=== PATIENT | female | born 1945 | race Caucasian/White ===

== ENCOUNTER → 2017-04-03 | Outpatient (CLI) | payer OTHER, MEDICARE ==
[~2017-04-03] MED LIST: GADOBUTROL 10 ML VIAL IVP ONE
[2017-04-03 07:46] LABS: CREATININE 0.8 mg/dL (0.6-1.0); GLOMERULAR FILTRATION RATE > 60
== END ==
LOC: FIMAGING 06:49
PROVIDERS: ATTEND Psychiatry & Neurology Neurology
DX: Z12.31 Encounter for screening mammogram for malignant neoplasm of breast (principal); G50.0 Trigeminal neuralgia
CPT/HCPCS: 70553; A9585; G0202

== ENCOUNTER → 2017-04-13 | Outpatient (CLI) | payer OTHER, MEDICARE | LOC: BMCIMAGING 10:13 | PROVIDERS: ATTEND Internal Medicine | DX: R92.2 Inconclusive mammogram (principal) | CPT/HCPCS: G0206 ==

== ENCOUNTER 2017-04-20 08:44 | Emergency (ER) | payer OTHER, MEDICARE ==
--- NOTE | 2017-04-20 09:22 | EDPHY ---
H & P Stated Complaint: Thinks she may be having a reaction to lamictal. Time Seen by Provider: 04/20/17 09:04 HPI/ROS: CHIEF COMPLAINT: Possible drug reaction, anxiety HISTORY OF PRESENT ILLNESS: The patient is a 72 y/o female arriving at the referral of her doctor due to concern she is having an allergic reaction to her Lamictal. She has a history of trigeminal neuralgia and was started on Lamictal April 02, about 2.5 weeks ago, to treat this. She developed diarrhea yesterday and called her neurologist, who instructed her to stop the Lamictal. She continued taking the medication yesterday, but discontinued it this morning and now complains of myalgias and is quite anxious her symptoms are due to her Lamictal. She has not had further episodes of diarrhea today. She complains of bilateral elbow and right shoulder soreness. She has a small, red, and pruritic bump on her right forearm that she thinks is a bug bite, but thought alternatively it may be caused by her medication. No abdominal pain, vomiting, fever. REVIEW OF SYSTEMS: Constitutional: No fever, no chills Eyes: No visual changes ENT: No sore throat Respiratory: No cough, no shortness of breath Cardiac: No chest pain Gastrointestinal: No nausea, no vomiting, no abdominal pain Genitourinary: No hematuria, no dysuria Neurological: No headache, no weakness Psychiatric: feels anxious - Medical/Surgical History PMH: PMH includes: Trigeminal neuralgia Hx Asthma: No Hx Chronic Respiratory Disease: No Hx Diabetes: No Hx Cardiac Disease: No Hx Renal Disease: No Hx Cirrhosis: No Hx Alcoholism: No Hx HIV/AIDS: No Hx Splenectomy or Spleen Trauma: No Other PMH: Depression. Colitis. Esophagus spasms. - Social History Smoking Status: Never smoked Additional Social History: at bedside. Scheduled to fly to [place] today. Neurologist: Dr. Mata - Physical Exam Exam: General Appearance: Alert, no distress Eyes: Pupils equal and round, no conjunctival pallor or injection ENT, Mouth: Mucous membranes moist, no oral lesions Neck: Normal inspection Respiratory: Lungs are clear to auscultation Cardiovascular: Regular rate and rhythm Gastrointestinal: Abdomen is soft and non-tender Neurological: A&O, nonfocal, normal gait Skin: 1cm area of raised erythema on her right forearm Extremities: Nontender, no pedal edema Psychiatric: anxious Constitutional: Initial Vital Signs Temperature (C) 36.6 C 04/20/17 08:45 Heart Rate 79 04/20/17 08:45 Respiratory Rate 20 04/20/17 08:45 Blood Pressure 160/104 H 04/20/17 08:45 O2 Sat (%) 96 04/20/17 08:45 O2 Delivery Mode Room Air Allergies/Adverse Reactions: iodine Allergy (Verified 04/20/17 08:50) Penicillins Allergy (Verified 04/20/17 08:50) whey Allergy (Uncoded 04/20/17 08:50) Home Medications: Medication Instructions Recorded Lamictal 04/20/17 Medical Decision Making ED Course/Re-evaluation: This is a 72 y/o female with a history of trigeminal neuralgia complaining of myalgias, a single raised erythematous area on her forearm, and now-resolved diarrhea that she is concerned is a reaction to her Lamictal. Her neurologist instructed her to stop the medication, but the patient took another dose yesterday. She has not taken a dose today. My suspicion is low for a Lamictal reaction as the cause of her symptoms, though this is possible. No evidence of Hannah-Larry's syndrome or infection. I've recommended she follow Dr. Mata's instructions and follow up with her as needed. Return precautions given. Repeat BP 140/92. Departure - Departure Disposition: Home, Routine, Self-Care Clinical Impression: Myalgia Diarrhea Qualifiers: Diarrhea type: unspecified type Qualified Code(s): R19.7 - Diarrhea, unspecified Condition: Good Instructions: Acute Diarrhea (ED), Musculoskeletal Pain (ED) Additional Instructions: Discontinue Lamictal as directed by your neurologist. Follow up with Dr. Mata as needed. Use Tylenol or ibuprofen as directed on the packaging as needed for pain over the next few days. Have your blood pressure rechecked. Referrals: Giana Mata, [Primary Care Provider] - As per Instructions Report Scribed for: Betsy Duckworth Report Scribed by: Sigrid Lane Date of Report: 04/20/17 Time of Report: 09:07 Physician Review and Approval Statement: 04/20/17 09:07 Portions of this note were transcribed by a medical liaison. I personally performed a history, physical exam, medical decision making, and confirmed accuracy of information the transcribed note.
[2017-04-20 10:01] VITALS: BP 140/92; PULSE 73; RESP 18; TEMP 98.1; O2SAT 93
== END 2017-04-20 09:50 | disposition home or self-care (01) ==
DX: M79.1 Myalgia (principal); R19.7 Diarrhea, unspecified

== ENCOUNTER 2017-07-06 11:28 | Day surgery (SDC) | payer OTHER, MEDICARE ==
[2017-07-06] MEDS ORDERED: ASPIRIN EC 325 MG TAB PO ONE (11:35)
[2017-07-06] MEDS ORDERED: NS 1,000 ML IV ONE (11:35)
[2017-07-06] MEDS ORDERED: FAMOTIDINE 20 MG/NACL 50 ML IV ONE (11:35)
[2017-07-06] MEDS ORDERED: DIAZEPAM 5 MG TAB PO ONE (11:35)
[2017-07-06] MEDS ORDERED: methylPREDNISolone SOD SUCC 125 MG/2 ML VIAL IVP ONE (11:35)
--- NOTE | 2017-07-06 11:43 | CPEKG ---
Heart Rate: 72 RR Interval: 833 P-R Interval: 176 QRSD Interval: 90 QT Interval: 412 QTC Interval: 451 P [place]: 38 QRS [place]: -3 T Wave [place]: 34 EKG Severity - ABNORMAL ECG - EKG Impression: SINUS RHYTHM EKG Impression: ANTERIOR AND INFERIOR T ABNL EKG Impression: PROBABLE INFERIOR INFARCT, AGE INDETERMINATE Electronically Signed By: Hali Gutiérrez 06-Jul-2017 21:30:14
[2017-07-06 12:10] LABS: % IMMATURE GRANULYOCYTES 0.5 % (0.0-1.1); ABSOLUTE IMMATURE GRANULOCYTES 0.03 10^3/uL (0.00-0.10); ADD DIFF? NO; ADD MORPH? NO; ADD SCAN? NO; ATYPICAL LYMPHOCYTE FLAG 10 (0-99); FRAGMENT RBC FLAG 0 (0-99); HEMATOCRIT 40.8 % (38.0-47.0); HEMOGLOBIN 14.1 g/dL (12.6-16.3); LEFT SHIFT FLG 0 (0-99); LIPEMIA HEMOLYSIS FLAG 90 (0-99); MEAN CELL HEMOGLOBIN 32.3 pg (27.9-34.1); MEAN CELL HEMOGLOBIN CONCENTR. 34.6 g/dL (32.4-36.7); MEAN CELL VOLUME 93.6 fL (81.5-99.8); PLATELET CLUMPS FLAG 10 (0-99); PLATELET COUNT 237 10^3/uL (150-400); RED BLOOD CELL COUNT 4.36 10^6/uL (4.18-5.33); RED CELL DISTRIBUTION WIDTH 12.5 % (11.5-15.2)
[2017-07-06 12:19] LABS: INR 1.02 (0.83-1.16); PROTIME(PATIENT) 13.3 SEC (12.0-15.0)
--- NOTE | 2017-07-06 12:28 | PDPROPOC ---
Sedation Plan of Care Sedation Plan of Care: vital signs stable, mental status noted, patient educated of risks, benefits, alternatives, patient can tolerate sedation ASA Classification: ASA 1 Planned drugs: fentanyl, midazolam Mallampati Score: Class 1 Mallampati Reference Image: Patient passed 3-3-2 rule?: Yes (332)
--- NOTE | 2017-07-06 12:28 | PDHPUP ---
History & Physical Update H&P update statement: This history and physical update is based on an assessment of the patient which was completed after admission or registration (within 24 hours), but prior to the surgery/procedure. H&P update: H&P reviewed & patient examined, no change in patient's condition since H&P completed
[2017-07-06 12:53] LABS: ANION GAP 9 mEq/L (8-16); CARBON DIOXIDE 24 mEq/l (22-31); CHLORIDE 103 mEq/L (97-110); CHOLESTEROL 201 mg/dL (140-220); CHOLESTEROL/HDL RATIO 2.64 RATIO (1.00-4.44); CREATININE 0.9 mg/dL (0.6-1.0); GLOMERULAR FILTRATION RATE > 60; GLUCOSE 92 mg/dL (70-100); HIGH DENSITY LIPOPROTEIN 76 mg/dL (40-85); LDL/HDL RATIO 1.43 RATIO (1.00-3.22); LOW DENSITY LIPOPROTEIN 109 mg/dL (80-100); MAGNESIUM 1.9 mg/dL (1.6-2.3); NON-HIGH DENSITY LIPOPROTEIN 125 mg/dL (90-129); POTASSIUM 4.7 mEq/L (3.5-5.2); SODIUM 136 mEq/L (134-144); TRIGLYCERIDE 80 mg/dL (35-135); VERY LOW DENSITY LIPOPROTEINS 16 mg/dL (8-25)
[2017-07-06] MEDS ORDERED: MIDAZOLAM 2 MG/2 ML VIAL ONE (12:58)
[2017-07-06] MEDS ORDERED: fentaNYL 100 MCG/2 ML INJ ONE (12:58)
[2017-07-06] MEDS ORDERED: LIDOCAINE 1% 300 MG/30 ML SDV ONE (12:58)
[2017-07-06] MEDS ORDERED: IOPAMIDOL (ISOVUE-370) 150 ML BTL IV ONE (12:59)
[2017-07-06] MEDS ORDERED: VERAPAMIL 5 MG/2 ML VIAL ONE (12:59)
[2017-07-06] MEDS ORDERED: HEPARIN 10,000 UNIT/10 ML MDV ONE (12:59)
--- NOTE | 2017-07-06 14:01 | PDDXCAT ---
Diagnostic Cath Note - . Date: 07/06/17 Commercial Marketing Specialist: Garrett High-risk criteria on non-invasive testing: high-risk treadmill score (score<=- 11) - Procedure Access: right wrist Procedure: left heart catheterization, coronary angiography, left ventriculogram - Materials Left Heart Cath size: 5F Left Heart Cath materials: pigtail, other (SiteSeer 4) - Findings-Left Heart Catheterization LM: Normal LAD: Normal LCX: Normal RCA: Dominant: Normal EDP: 15 mm of mercury LVEF: 65 Wall motion: Normal Complications: None Estimated blood loss: <50ml Closure method: TR Band Assessment: Angiographically normal coronary arteries. Normal left ventricular systolic function with normal filling pressures.
[2017-07-06] MEDS ORDERED: NITROGLYCERIN 0.4 MG BTL SL PRN (14:02)
== END 2017-07-06 17:44 | disposition home or self-care (01) ==
LOC: FCATH 11:28
PROVIDERS: ATTEND Internal Medicine Interventional Cardiology
PROC: B2111ZZ Fluoroscopy of Multiple Coronary Arteries using Low Osmolar Contrast (ICD-10-PCS; principal; 2017-07-06)
PROC: 4A023N7 Measurement of Cardiac Sampling and Pressure, Left Heart, Percutaneous Approach (ICD-10-PCS; principal; 2017-07-06)
PROC: B2151ZZ Fluoroscopy of Left Heart using Low Osmolar Contrast (ICD-10-PCS; principal; 2017-07-06)
DX: R06.09 Other forms of dyspnea (principal); R07.81 Pleurodynia; R68.89 Other general symptoms and signs; R00.0 Tachycardia, unspecified; R42 Dizziness and giddiness
CPT/HCPCS: 93005; 93458; C1769; J1200; J1644; J2250; J3010; Q9967

== ENCOUNTER → 2017-08-13 | Outpatient (CLI) | payer OTHER, MEDICARE | LOC: BMCIMAGING 11:23 | PROVIDERS: ATTEND Internal Medicine Rheumatology | DX: Z13.820 Encounter for screening for osteoporosis (principal); M85.80 Other specified disorders of bone density and structure, unspecified site ==

== ENCOUNTER 2017-09-17 14:57 | Emergency (ER) | payer OTHER, MEDICARE ==
--- NOTE | 2017-09-17 15:26 | CPEKG ---
Heart Rate: 68 RR Interval: 882 P-R Interval: 184 QRSD Interval: 92 QT Interval: 408 QTC Interval: 434 P Branscomb: 50 QRS Branscomb: 35 T Wave Br[place]comb: 48 EKG Severity - BORDERLINE ECG - EKG Impression: SINUS RHYTHM Electronically Signed By: Ronal Hagen 17-Sep-2017 15:35:58
[2017-09-17] MEDS ORDERED: NS 1,000 ML IV ONE (15:35)
--- NOTE | 2017-09-17 15:35 | EDPHY ---
H & P Stated Complaint: Lightheaded Time Seen by Provider: 09/17/17 15:09 HPI/ROS: CHIEF COMPLAINT: Lightheaded HISTORY OF PRESENT ILLNESS: The patient is a 72-year-old female who was been persistently lightheaded especially with exertion for the last month. She saw Dr. Bryson who performed a D-dimer and stress test. The D-dimer was negative. The stress test could not be completed because the patient felt extremely lightheaded when her heart rate increased above 115. She then had an angiogram and an echo both of which were negative. She wore a Holter monitor for 2 weeks which was also negative. Dr. Wilhelm felt that this was likely an electrical disturbance and referred her to Dr. Anna. She has an appointment with him on the . She has completed sleep apnea and PFT test since then which she does not know the results of. She states that her symptoms used to only happen when she was exercising however today the began happening during normal activity like doing the laundry or working in the kitchen. She describes herself as feeling lightheaded and the hyperventilating. She states she controls her breathing so that she does not hyperventilate but when she looks in the mirror her lips looked huber and her ears start to ring. This is consistent with her previous episodes however they have never happened with such little exertion before. No recent fevers or infections. No trauma. She does have a significant history of panic attacks and anxiety and stressors. She has Ativan at home for this but did not want to take any today because she did not want to mask the symptoms. REVIEW OF SYSTEMS: Constitutional: denies: chills, fever, recent illness, recent injury EENTM: denies: blurred vision, double vision, nose congestion Respiratory: denies: cough, shortness of breath Cardiac: See HPI Gastrointestinal/Abdominal: denies: abdominal pain, diarrhea, nausea, vomiting, blood streaked stools Genitourinary: denies: dysuria, frequency, hematuria, pain Musculoskeletal: denies: joint pain, muscle pain Skin: denies: lesions, rash, jaundice, bruising Neurological: denies: headache, numbness, paresthesia, tingling, dizziness, weakness Hematologic/Lymphatic: denies: blood clots, easy bleeding, easy bruising Immunologic/allergic: denies: HIV/AIDS, transplant EXAM: GENERAL: Well-appearing, well-nourished and in no acute distress. HEAD: Atraumatic, normocephalic. EYES: Pupils equal round and reactive to light, extraocular movements intact, sclera anicteric, conjunctiva are normal. ENT: TMs normal, nares patent, oropharynx clear without exudates. Moist mucous membranes. NECK: Normal range of motion, supple without lymphadenopathy or JVD. LUNGS: Breath sounds clear to auscultation bilaterally and equal. No wheezes rales or rhonchi. HEART: Regular rate and rhythm without murmurs, rubs or gallops. ABDOMEN: Soft, nontender, normoactive bowel sounds. No guarding, no rebound. No masses appreciated. BACK: No CVA tenderness, no spinal tenderness, step-offs or deformities EXTREMITIES: Normal range of motion, no pitting or edema. No clubbing or cyanosis. NEUROLOGICAL: Cranial nerves II through XII grossly intact. Normal speech, normal gait. 5/5 strength, normal movement in all extremities, normal sensation PSYCH: Normal mood, normal affect. SKIN: Warm, dry, normal turgor, no visible rashes or lesions. Source: Patient Exam Limitations: No limitations - Personal History Current Tetanus Diphtheria and Acellular Pertussis (TDAP): Yes - Medical/Surgical History Hx Asthma: No Hx Chronic Respiratory Disease: No Hx Diabetes: No Hx Cardiac Disease: No Hx Renal Disease: No Hx Cirrhosis: No Hx Alcoholism: No Hx HIV/AIDS: No Hx Splenectomy or Spleen Trauma: No Other PMH: Depression. Colitis. Esophagus spasms. trigeminal neuralgia, anxiety ,panic attacks - Social History Smoking Status: Never smoked Alcohol Use: Sober Drug Use: None Constitutional: Initial Vital Signs Temperature (C) 36.7 C 09/17/17 14:59 Heart Rate 77 09/17/17 14:59 Respiratory Rate 16 09/17/17 14:59 Blood Pressure 152/97 H 09/17/17 14:59 O2 Sat (%) 98 09/17/17 14:59 O2 Delivery Mode Room Air Allergies/Adverse Reactions: carbamazepine [From Tegretol] Allergy (Verified 09/17/17 15:03) iodine Allergy (Verified 09/17/17 14:58) Rash lamotrigine [From Lamictal] Allergy (Verified 09/17/17 14:58) Rash Penicillins Allergy (Verified 09/17/17 14:58) Rash whey Allergy (Uncoded 07/06/17 13:44) Vomiting Home Medications: Medication Instructions Recorded Amitriptyline HCl [Elavil 50 mg 50 mg PO HS 07/06/17 (*)] Atorvastatin Calcium [Lipitor 10 10 mg PO HS 07/06/17 mg (*)] DULoxetine [Cymbalta 60 MG (*)] 60 mg PO BID 07/06/17 Diazepam [Valium 5 MG (*)] 5 mg PO BID PRN 07/06/17 Herbals/Supplements -Info Only 1 ea PO DAILY 07/06/17 LORazepam [Ativan (*)] 1 mg PO DAILY PRN 07/06/17 Multivitamins [Multivitamin (*)] 2 each PO DAILY 07/06/17 [place]-3 Fatty Acids [Fish Oil 1000 3,000 mg PO DAILY 07/06/17 mg (*)] Ranitidine HCl [Zantac] 300 mg PO BID 07/06/17 Reclast 5mg/100ml Iv 5 mg IV Q365D 07/06/17 Medical Decision Making - Diagnostics EKG Interpretation: An EKG obtained and was read and documented in trace view. Please see trace view for full reading and report. Sinus rhythm, no acute ischemic changes or arrhythmias Imaging Results: Imaging Impressions Chest X-Ray 09/17/17 15:35 Impression: Right apical asymmetry. Recommend obtaining either a PA chest x-ray which can be directly compared to the 2007 PA exam or a noncontrast chest CT for further evaluation. Results called to Dr. Hagen at 4:39 PM. Chest X-Ray 09/17/17 16:41 Impression: Recommend noncontrast chest CT to evaluate a left apex asymmetry. Results discussed with Dr. Hagen at 5:03 PM. ED Course/Re-evaluation: Patient is asymptomatic now after Ativan. I have paged Dr. Anna's office did see if we can make her appointment sooner. I will also page her grain buyer Dr. Wilhelm. She would prefer not to stay in the hospital with possible. She would prefer to return home and follow up with Dr. Anna. 5:15 p.m. I discussed the case with Amrik the cardiology PA. He will have Dr. Anna is office called the patient in the morning. He will tentatively schedule appointment for the . The patient and her are happy with this. They declined further workup or testing at this point in her eager to go home. We did discuss the irregularity seen on her chest x-ray and recommended follow- up CT scan through her primary doctor do it. She and her understand and agree with this plan. They are obviously concerned. Differential Diagnosis: Partial list of the Differential diagnosis considered include but were not limited to; anxiety, arrhythmia and although unlikely based on the history and physical exam, I also considered acute coronary disease, PE, pneumonia. I discussed these differential diagnoses and the plan with the patient as well as the usual and expected course. The patient understands that the diagnosis is provisional and that in medicine we are not always correct and that further workup is often warranted. Usual and customary warnings were given. All of the patient's questions were answered. The patient was instructed to return to the emergency department should the symptoms at all worsen or return, otherwise to followup with the physician as we discussed. - Data Points Laboratory Results: Laboratory Results 09/17/17 15:15 09/17/17 15:15 09/17/17 09/17/17 15:15 15:15 WBC 6.90 10^3/uL 10^3/uL (3.80-9.50) RBC 4.55 10^6/uL 10^6/uL (4.18-5.33) Hgb 14.6 g/dL g/dL (12.6-16.3) Hct 41.8 % % (38.0-47.0) MCV 91.9 fL fL (81.5-99.8) MCH 32.1 pg pg (27.9-34.1) MCHC 34.9 g/dL g/dL (32.4-36.7) RDW 12.6 % % (11.5-15.2) Plt Count 252 10^3/uL 10^3/uL (150-400) MPV 8.8 fL fL (8.7-11.7) Neut % (Auto) 56.0 % % (39.3-74.2) Lymph % (Auto) 31.4 % % (15.0-45.0) [place] % (Auto) 9.9 % % (4.5-13.0) Eos % (Auto) 1.4 % % (0.6-7.6) Baso % (Auto) 1.0 % % (0.3-1.7) Nucleat RBC Rel Count 0.0 % % (0.0-0.2) Absolute Neuts (auto) 3.86 10^3/uL 10^3/uL (1.70-6.50) Absolute Lymphs (auto) 2.17 10^3/uL 10^3/uL (1.00-3.00) Absolute Monos (auto) 0.68 10^3/uL 10^3/uL (0.30-0.80) Absolute Eos (auto) 0.10 10^3/uL 10^3/uL (0.03-0.40) Absolute Basos (auto) 0.07 10^3/uL 10^3/uL (0.02-0.10) Absolute Nucleated RBC 0.00 10^3/uL 10^3/uL (0-0.01) Immature Gran % 0.3 % % (0.0-1.1) Immature Gran # 0.02 10^3/uL 10^3/uL (0.00-0.10) Sodium 135 mEq/L mEq/L (134-144) Potassium 4.1 mEq/L mEq/L (3.5-5.2) Chloride 102 mEq/L mEq/L (97-110) Carbon Dioxide 22 mEq/l mEq/l (22-31) Anion Gap 11 mEq/L mEq/L (8-16) BUN 14 mg/dL mg/dL (7-23) Creatinine 0.9 mg/dL mg/dL (0.6-1.0) Estimated GFR > 60 Glucose 85 mg/dL mg/dL (70-100) Calcium 9.3 mg/dL mg/dL (8.5-10.4) Troponin I < 0.012 ng/mL ng/mL (0.000-0.034) Medications Given: Discontinued Medications Sodium Chloride (Ns) 1,000 mls @ 0 mls/hr IV EDNOW ONE; Wide Open PRN Reason: Protocol Stop: 09/17/17 15:36 Last Admin: 09/17/17 15:40 Dose: 1,000 mls Lorazepam (Ativan) 0.5 mg PO EDNOW ONE Stop: 09/17/17 16:21 Last Admin: 09/17/17 16:22 Dose: 0.5 mg Departure - Departure Disposition: Home, Routine, Self-Care Clinical Impression: Light-headed feeling Condition: Fair Instructions: Lightheadedness (ED) Referrals: Sigrid Hall MD [Primary Care Provider] - As per Instructions Hesham Anna MD [Medical Doctor] - As per Instructions
[2017-09-17 15:44] LABS: % IMMATURE GRANULYOCYTES 0.3 % (0.0-1.1); ABSOLUTE IMMATURE GRANULOCYTES 0.02 10^3/uL (0.00-0.10); ADD DIFF? NO; ADD MORPH? NO; ADD SCAN? NO; ATYPICAL LYMPHOCYTE FLAG 0 (0-99); FRAGMENT RBC FLAG 0 (0-99); HEMATOCRIT 41.8 % (38.0-47.0); HEMOGLOBIN 14.6 g/dL (12.6-16.3); LEFT SHIFT FLG 0 (0-99); LIPEMIA HEMOLYSIS FLAG 90 (0-99); MEAN CELL HEMOGLOBIN 32.1 pg (27.9-34.1); MEAN CELL HEMOGLOBIN CONCENTR. 34.9 g/dL (32.4-36.7); MEAN CELL VOLUME 91.9 fL (81.5-99.8); MEAN PLATELET VOLUME 8.8 fL (8.7-11.7); PLATELET CLUMPS FLAG 10 (0-99); PLATELET COUNT 252 10^3/uL (150-400); RED BLOOD CELL COUNT 4.55 10^6/uL (4.18-5.33); RED CELL DISTRIBUTION WIDTH 12.6 % (11.5-15.2)
[2017-09-17 15:49] LABS: ANION GAP 11 mEq/L (8-16); CALCIUM 9.3 mg/dL (8.5-10.4); CARBON DIOXIDE 22 mEq/l (22-31); CHLORIDE 102 mEq/L (97-110); CREATININE 0.9 mg/dL (0.6-1.0); GLOMERULAR FILTRATION RATE > 60; GLUCOSE 85 mg/dL (70-100); POTASSIUM 4.1 mEq/L (3.5-5.2); SODIUM 135 mEq/L (134-144)
[2017-09-17 16:00] LABS: TROPONIN I < 0.012 ng/mL (0.000-0.034)
[2017-09-17] MEDS ORDERED: LORazepam 0.5 MG TAB PO ONE (16:20)
[2017-09-17] MEDS ORDERED: LORazepam 0.5 MG TAB ONE (16:21)
[2017-09-17 17:59] VITALS: BP 133/99; PULSE 74; RESP 18; TEMP 98.4; O2SAT 94
== END 2017-09-17 17:34 | disposition home or self-care (01) ==
DX: R42 Dizziness and giddiness (principal); E86.9 Volume depletion, unspecified

== ENCOUNTER → 2017-09-27 | Outpatient (CLI) | payer OTHER, MEDICARE | LOC: FIMAGING 09:23 | PROVIDERS: ATTEND Internal Medicine | DX: R91.8 Other nonspecific abnormal finding of lung field (principal) ==

== ENCOUNTER 2017-11-13 11:07 | Observation (INO) | payer OTHER, MEDICARE ==
[2017-11-13] MEDS ORDERED: BACITRACIN IRRIGATION/NS 50,000 UNITS/1,000 ML BTL IRR ONE (11:13)
[2017-11-13] MEDS ORDERED: NS 1,000 ML IV ONE (11:13)
[2017-11-13] MEDS ORDERED: methylPREDNISolone SOD SUCC 125 MG/2 ML VIAL IVP ONE (11:13)
[2017-11-13] MEDS ORDERED: FAMOTIDINE 20 MG/NACL 50 ML IV ONE (11:13)
--- NOTE | 2017-11-13 11:34 | CPEKG ---
Heart Rate: 76 RR Interval: 789 P-R Interval: 176 QRSD Interval: 96 QT Interval: 400 QTC Interval: 450 P Stark: 66 QRS Stark: 35 T Wave Stark: 64 EKG Severity - BORDERLINE ECG - EKG Impression: SINUS RHYTHM EKG Impression: BORDERLINE T ABNORMALITIES, ANT-LAT LEADS Electronically Signed By: Hesham Anna 13-Nov-2017 14:58:42
[2017-11-13] MEDS ORDERED: methylPREDNISolone SOD SUCC 125 MG/2 ML VIAL ONE (11:37)
[2017-11-13] MEDS ORDERED: FAMOTIDINE 20 MG/NACL/50 ML BAG IV ONE (11:38)
[2017-11-13 11:54] LABS: PLATELET COUNT 283 10^3/uL (150-400)
[2017-11-13] MEDS ORDERED: VANCOMYCIN 1 GM in D5W 250 ML IV ONE (12:00)
[2017-11-13] MEDS ORDERED: VANCOMYCIN HCL/NORMAL SALINE 250 ML IV ONE (12:00)
[2017-11-13 12:04] LABS: INR 0.99 (0.83-1.16); PROTIME(PATIENT) 13.3 SEC (12.0-15.0)
[2017-11-13] MEDS ORDERED: LIDOCAINE 1% 300 MG/30 ML SDV ONE (12:57)
[2017-11-13] MEDS ORDERED: BUPIVACAINE 0.5% 30 ML SDV ONE (12:57)
[2017-11-13] MEDS ORDERED: MIDAZOLAM 2 MG/2 ML VIAL ONE ×4 (13:02→14:26)
[2017-11-13] MEDS ORDERED: fentaNYL 100 MCG/2 ML INJ ONE ×2 (13:03→14:04)
[2017-11-13] MEDS ORDERED: IOPAMIDOL (ISOVUE-300) 100 ML BTL ONE (13:03)
--- NOTE | 2017-11-13 13:25 | PDGENHP ---
History & Physical Chief Complaint: chronotropic incompetence, fatigue Relevant Physical Exam: [id number] Cardiorespiratory Assessment: Chronotropic incompetence, fatigue. - explained to patient and that fatigue may not improve with pacing, will have to wait and see if higher HR with exercise helps. - also discussed AAIR pacemaker , she has no indication for V pacing. If she conducts 1:1 through AV node while pacing atrium, will NOT place V lead. She understands some patients may need addition of V lead in future and if L SCV is occluded may need tunneling.
--- NOTE | 2017-11-13 13:41 | PDPROPOC ---
Sedation Plan of Care Sedation Plan of Care: vital signs stable, mental status noted, patient educated of risks, benefits, alternatives, patient can tolerate sedation ASA Classification: ASA 1 Planned drugs: fentanyl, midazolam Mallampati Score: Class 1 Mallampati Reference Image: Patient passed 3-3-2 rule?: Yes
--- NOTE | 2017-11-13 15:06 | EPPROC ---
Electrophysiology Procedure Note: PROCEDURE PERFORMED: 1. Implantation of an atrial Pacemaker 2. Subclavian vein angiography 3. Fluoroscopy INDICATION: Chronotropic incompetence PROCEDURE NOTE: Patient presented to the cardiac catheterization laboratory in a fasting, post absorptive state . EP RN administered sedation. The left infraclavicular area was prepped and draped in the usual sterile fashion. Lidocaine plus bupivacaine was used for local anesthesia. Left subclavian venography was performed by injection of iodinated contrast into the left antecubital vein. This was done to assure patency of the vein and also to assess for any anatomical aberrations. Using a combination of blunt and sharp dissection and electrocautery, the dissection was carried down to the prepectoral fascia. A pocket was made in this anatomical plane. All bleeding was controlled with electrocautery. The pocket was packed with gauze soaked in antibiotic solution. Fluoroscopy was utilized during the entire procedure for venous access and placement of the lead. Using a direct stick technique the left extrathoracic axillary vein was accessed with1 sticks using the modified Seldinger technique. Placement of the guidewire into the venous system was confirmed by low-pressure blood return and also by visualizing the guidewire advancing into the inferior vena cava. One #9 Persian sheath was advanced under fluoroscopic guidance over the guidewire. An active fixation atrial lead was advanced into the right atrial appendage and screwed in place. The peel away sheath was removed. Pacing thresholds, sensing parameters and lead impedances were measured. There was no diaphragmatic stimulation at maximum output. The leads were sutured to the prepectoral fascia with 3 nonabsorbable sutures each. Pacing the atrium at 150 bpm showed intact AV gisela conduction with 1:1 conduction to the ventricles, therefore per previous discussion with patient, ventricular lead was not placed. The pocket was again inspected for any bleeding. The lead was attached to the pacemaker securely. The pacemaker was inserted into the pocket and secured in place with a nonabsorbable suture. Fluoroscopy was performed in COLE and AZERI planes to verify right-sided placement of the lead . Also fluoroscopy of the pacemaker pocket was performed. The pacemaker pocket was closed in 3 layers with absorbable monocryl sutures and valeri. Appropriate dressing was applied. The patient left the cardiac catheterization laboratory in stable condition. Serial Numbers: 1. Device: [employer] Assurity MRI [id number] 2. Atrial Lead: SJM Tendril MRI [id number] 46 cm SN [id number] Stimulation Thresholds & Impedance Measurements: 1. Atrial Lead P 1.5 mV 0.9 V 0.5 ms 1.9 mA 478 ohm Edgar Pacing Parameters 1. Pacing mode: AAIR 2. Lower rate: 60ppm 3. Upper tracking rate: 130 ppm Upper sensor rate: 130 ppm Patient Problems: Problems Problem Status Onset Chronotropic incompetence Acute
[2017-11-13] MEDS ORDERED: RECLAST IV SCH ×2 (15:15→16:45)
--- NOTE | 2017-11-13 15:21 | CPEKG ---
Heart Rate: 78 RR Interval: 769 P-R Interval: 184 QRSD Interval: 96 QT Interval: 387 QTC Interval: 441 P [place]: 55 QRS [place]: 22 T Wave [place]: 88 EKG Severity - ABNORMAL ECG - EKG Impression: SINUS RHYTHM EKG Impression: NONSPECIFIC T ABNORMALITIES, ANT-LAT LEADS Electronically Signed By: Hesham Anna 14-Nov-2017 08:51:38
[2017-11-13] MEDS ORDERED: ACETAMINOPHEN 325 MG TAB ONE (18:42)
[2017-11-13] MEDS ORDERED: NON-FORMULARY NEW DRUG (Ranitidine Hcl [Zantac] 300 MG) PO SCH (21:00)
[2017-11-13] MEDS ORDERED: ATORVASTATIN CALCIUM 10 MG TAB PO SCH (21:00)
[2017-11-13] MEDS: FAMOTIDINE 20 MG TAB PO SCH (21:50)
[2017-11-13] MEDS: DIAZEPAM 5 MG TAB PO SCH (21:50)
[2017-11-13] MEDS: DULoxetine 60 MG CAP PO SCH (21:50)
[2017-11-13] MEDS: HYDROCODONE/APAP 5/325 TAB PO PRN (22:30)
[2017-11-14] MEDS: HYDROCODONE/APAP 5/325 TAB PO PRN (04:27)
[2017-11-14 04:34] LABS: PLATELET COUNT 291 10^3/uL (150-400)
[2017-11-14] MEDS ORDERED: ASPIRIN 81 MG CHEWABLE TAB PO SCH (09:00)
[2017-11-14] MEDS ORDERED: OMEGA-3 FATTY ACIDS 1,000 MG CAP PO SCH (09:00)
[2017-11-14 09:01] VITALS: BP 102/69; PULSE 81; RESP 12; TEMP 98.1; O2SAT 94
[2017-11-14] MEDS: DULoxetine 60 MG CAP PO SCH (09:01)
[2017-11-14] MEDS: FAMOTIDINE 20 MG TAB PO SCH (09:01)
[2017-11-14] MEDS: DIAZEPAM 5 MG TAB PO SCH (09:01)
--- NOTE | 2017-11-14 09:09 | CPEKG ---
Heart Rate: 81 RR Interval: 741 P-R Interval: 184 QRSD Interval: 88 QT Interval: 352 QTC Interval: 409 P Simpson: 55 QRS Simpson: 39 T Wave Simpson: 128 EKG Severity - ABNORMAL ECG - EKG Impression: SINUS RHYTHM EKG Impression: NONSPECIFIC T ABNORMALITIES, ANT-LAT LEADS Electronically Signed By: Hesham Anna 14-Nov-2017 09:20:24
--- NOTE | 2017-11-14 15:58 | ASDISCHSUM ---
Discharge Information Plan Status:Home with No Needs Medically Cleared to Leave:11/13/2017 Discharge Date:11/14/2017 10:44 AM CM D/C Disposition: ADT D/C Disposition:Home, Routine, Self-Care Projected Discharge Date:11/14/2017 12:00 AM Transportation at D/C: Discharge Delay Reason: Follow-Up Date:11/14/2017 12:00 AM Discharge Slot: Final Diagnosis: Placement Information Patient Contact Information Contact Name:MARIELLA Relationship: Address:[address] Work Phone: City:[place] Alternate Phone: [facility]/Zip Code:[place] [address] Email: Financial Information Financial Class: Primary Plan Desc:MEDICARE OUTPATIENT Primary Plan Number:[id number] Secondary Plan Desc:[employer]/M[employer] SUPPLEMENT Secondary Plan Number:[id number] Assessment Information Intervention Information Intervention Type:*WESLEY-Signed Date of Service:11/14/2017 09:50 AM Patient Type:Observation Staff Member:Adriana Manjarrez Hours: Discipline: Severity: Comment:
--- NOTE | 2017-11-14 17:28 | GDS ---
[f rep st] DISCHARGE SUMMARY DISCHARGE DIAGNOSES: 1. Chronotropic incompetence. 2. Status post single-chamber pacemaker implant. BRIEF HISTORY: This is a 72-year-old woman who was referred to Dr. Anna by Dr. Wilhelm for dyspnea on exertion. Treadmill testing demonstrated poor heart rate response. HOSPITAL COURSE: Dr. Anna implanted a [employer] MRI single- chamber pacemaker. This is programmed AAIR with a base rate of 60, and a max sensor rate of 130 beats per minute. At the time of discharge, atrial capture was 0.75 V at 0.5 msec. P waves were 2.6 mV, and lead impedance was 450 ohms. Patient experienced moderate discomfort at the pacemaker site overnight. She did take Percocet x2, as well as placing an ice pack on the site. Pain has decreased this morning. She denies any shortness of breath or chest discomfort. TESTING DONE: Chest x-ray demonstrates stable lead placement and no pleural effusion. LABORATORY DATA: WBC is 15.82, hemoglobin 14, hematocrit 39.7, platelets 291. Sodium is 139, potassium is 4.9, chloride is 106, bicarb is 21, BUN 11, creatinine is 0.7, glucose is 129. PHYSICAL EXAMINATION: VITAL SIGNS: Blood pressure is 127/81, pulse is 89, respirations 18, temperature 36.6 (afebrile), O2 saturation is 97%. GENERAL: She is alert and oriented, lying in bed in no acute distress. SKIN: Pacemaker incision site is covered with gauze and Opsite which is dry and intact. She does have an ice pack over that site. CARDIAC: Regular rate and rhythm without murmur, rub, or gallop. LUNGS: Clear to auscultation. DISCHARGE INSTRUCTIONS: Reviewed post pacemaker implant instructions, and she was given written instructions at the time of discharge. DISCHARGE MEDICATIONS: Please see discharge medication reconciliation. She was given 2 Percocet for discomfort for tonight. FOLLOWUP: She has a followup pacemaker check and wound check on November 21 at 11:[address] [facility], and a followup with Dr. Anna on December 12 at 1:45. /[id number]/MODL MTDD
== END 2017-11-14 10:44 | disposition home or self-care (01) ==
LOC: FCATH 11:07 → F2W 15:04
PROVIDERS: ADMIT Internal Medicine Cardiovascular Disease; ATTEND Internal Medicine Cardiovascular Disease
DX: I45.89 Other specified conduction disorders (principal); R53.83 Other fatigue
CPT/HCPCS: 33206; 71045; 71046; 93005; C1786; C1898; J1200; J2250; J2930; J3010; J3370; Q9967

== ENCOUNTER → 2018-01-28 | Outpatient (CLI) | payer OTHER, MEDICARE | LOC: BMCIMAGING 16:49 | PROVIDERS: ATTEND Family Medicine | DX: R05 Cough (principal) ==

== ENCOUNTER 2018-05-11 15:10 | Emergency (ER) | payer OTHER, MEDICARE ==
--- NOTE | 2018-05-11 16:03 | EDPHY ---
H & P Time Seen by Provider: 05/11/18 15:53 HPI/ROS: Chief complaint. Left calf pain HPI. Patient is 73-year-old female has had 2-3 weeks of left calf pain and swelling. It began in the middle of an 11 [place] trip in [place]. There was both sedentary activity and then unusual activity of hauling gear out of wraps. Otherwise no fall or injury. She has no chest pain or shortness of breath. No history of thromboembolic disease. Patient thinks she has torn a calf muscle and would like physical therapy however her PCP does not want prescribed physical therapy prior to ruling out a DVT. No symptoms above the knee. No symptoms to the right leg ROS Constitutional. no fever/chills, no weakness Eyes. no problems with vision ENT. no sore throat, no nasal drainage Cardiovascular. no chest pain Respiratory. no shortness of breath, no cough Abdominal. no abdominal pain, no nausea/vomiting, no diarrhea . no problems urinating MS. Left calf pain and swelling Skin. no rash Lymph. no swollen glands Neuro. no headache, no dizziness, no difficulty walking or with speech Past Medical/Surgical History: Colitis, depression, trigeminal neuralgia, anxiety, pacemaker Social History: , nonsmoker, no alcohol Smoking Status: Never smoked Physical Exam: General Appearance: Alert pleasant well-developed female mild distress vital signs stable Eyes: Pupils equal and round no pallor or injection. ENT, Mouth: Mucous membranes are moist. Respiratory: There are no retractions, lungs are clear to auscultation. Cardiovascular: Regular rate and rhythm. Gastrointestinal: Abdomen is soft and nontender, no masses, bowel sounds normal. Neurological: Awake and alert, sensory and motor exams grossly normal. Skin: Warm and dry, no rashes. Musculoskeletal: Neck is supple nontender. Extremities tenderness posterior calf. Minimal swelling. Distal pulses are normal. No erythema or evidence of infection. No deformity. No symptoms at knee or thigh Psychiatric: Patient is oriented X 3, there is no agitation. Constitutional: Initial Vital Signs Temperature (C) 36.6 C 05/11/18 15:28 Heart Rate 76 05/11/18 15:28 Respiratory Rate 18 05/11/18 15:28 Blood Pressure 134/86 H 05/11/18 15:28 O2 Sat (%) 96 05/11/18 15:28 O2 Delivery Mode Room Air Allergies/Adverse Reactions: carbamazepine [From Tegretol] Allergy (Verified 05/11/18 15:27) iodine Allergy (Verified 05/11/18 15:27) Rash lamotrigine [From Lamictal] Allergy (Verified 05/11/18 15:27) Rash Penicillins Allergy (Verified 05/11/18 15:27) Rash whey Allergy (Uncoded 07/06/17 13:44) Vomiting Home Medications: Medication Instructions Recorded Amitriptyline HCl [Elavil 50 mg 50 mg PO HS 07/06/17 (*)] Atorvastatin Calcium [Lipitor 10 10 mg PO HS 07/06/17 mg (*)] DULoxetine [Cymbalta 60 MG (*)] 60 mg PO BID 07/06/17 Diazepam [Valium 5 MG (*)] 5 mg PO BID 07/06/17 [place]-3 Fatty Acids [Fish Oil 1000 3,000 mg PO DAILY 07/06/17 mg (*)] Ranitidine HCl [Zantac] 300 mg PO BID 07/06/17 Reclast 5mg/100ml Iv 5 mg IV Q365D 07/06/17 Aspirin [Aspirin 81mg (*)] 81 mg PO DAILY 11/06/17 Hydrocodone/APAP 5/325 [Rachel 1 tab PO Q6H PRN #2 tab 11/14/17 5/325 (*)] Medical Decision Making - Diagnostics Imaging Results: Ultrasound left lower extremity reviewed by me and discussed with Dr. He is negative for DVT. Small fluid collection in the popliteal fossa possibly consistent with ruptured Alvarez cyst. ED Course/Re-evaluation: Re-evaluation 4:30 p.m.. Patient and I discussed imaging study results, treatment plan including criteria for return importance of follow-up further evaluation. She expresses understanding Differential Diagnosis: I considered DVT, calf muscle tear, ruptured Alvarez cyst Departure - Departure Disposition: Home, Routine, Self-Care Clinical Impression: Pain of left calf Condition: Good Instructions: Leg Pain (ED) Additional Instructions: Easy activity. Ibuprofen for discomfort. Return for worsening symptoms. Follow up with your regular physician for physical therapy Referrals: Sigrid Hall MD [Primary Care Provider] - 2-3 days, call for appt.
[2018-05-11 16:41] VITALS: BP 132/80
== END 2018-05-11 16:41 | disposition home or self-care (01) ==
DX: M79.662 Pain in left lower leg (principal); Z79.82 Long term (current) use of aspirin; Z95.0 Presence of cardiac pacemaker

== ENCOUNTER → 2018-08-16 | Outpatient (CLI) | payer OTHER, MEDICARE | LOC: BMCIMAGING 13:49 | PROVIDERS: ATTEND Physician Assistant | DX: M17.12 Unilateral primary osteoarthritis, left knee (principal) ==

== ENCOUNTER → 2018-09-27 | Outpatient (CLI) | payer OTHER, MEDICARE | LOC: FIMAGING 09:50 | PROVIDERS: ATTEND Urology | DX: N39.0 Urinary tract infection, site not specified (principal) ==

== ENCOUNTER → 2018-12-25 | Outpatient (CLI) | payer OTHER, MEDICARE | LOC: BMCIMAGING 14:25 | PROVIDERS: ATTEND Internal Medicine | DX: Z12.31 Encounter for screening mammogram for malignant neoplasm of breast (principal) ==

== ENCOUNTER → 2019-04-09 | Outpatient (CLI) | payer OTHER, MEDICARE | LOC: BMCIMAGING 12:44 ==